=== PATIENT | male | born 1965 | race Caucasian/White ===

== ENCOUNTER → 2016-12-27 | Outpatient (REF) | payer OTHER | LOC: M SFHCLERA 11:29 | PROVIDERS: ATTEND Nurse Practitioner Family | DX: R50.9 Fever, unspecified (principal) ==

== ENCOUNTER → 2017-04-10 | Outpatient (REF) | payer OTHER | LOC: M SFHCPLAZ 15:20 | PROVIDERS: ATTEND Nurse Practitioner Adult Health | DX: Z00.00 Encounter for general adult medical examination without abnormal findings (principal); R53.83 Other fatigue ==

== ENCOUNTER → 2017-11-26 | Outpatient (CLI) | payer OTHER | LOC: M RAD 15:49 | DX: M54.2 Cervicalgia (principal); M47.812 Spondylosis without myelopathy or radiculopathy, cervical region | CPT/HCPCS: 72141 ==

== ENCOUNTER → 2018-10-12 | Outpatient (CLI) | payer OTHER ==
[2018-10-12 17:41] LABS: ALBUMIN 3.9 GM/DL (3.2-5.2); ALBUMIN/GLOBULIN RATIO 1.03 (1.00-1.93); ALKALINE PHOSPHATASE 53 U/L (45-117); ALT/SGPT 25 U/L (12-78); ANION GAP 7 MEQ/L (8-16); AST/SGOT 20 U/L (7-37); BILIRUBIN,TOTAL 0.4 MG/DL (0.2-1.0); BLOOD UREA NITROGEN 19 MG/DL (7-18); CARBON DIOXIDE LEVEL 29 MEQ/L (21-32); CHLORIDE LEVEL 106 MEQ/L (98-107); CHOLESTEROL LEVEL 206 MG/DL (<200); CREATININE FOR GFR 1.27 MG/DL (0.70-1.30); GLOMERULAR FILTRATION RATE > 60.0 (>56); GLUCOSE, FASTING 95 MG/DL (70-100); HDL CHOLESTEROL 40 MG/DL (>40); LDL CHOLESTEROL 125 MG/DL (<100); NON-HDL-C 166 MG/DL; POTASSIUM SERUM 4.2 MEQ/L (3.5-5.1); SODIUM LEVEL 142 MEQ/L (136-145); TOTAL PROTEIN 7.7 GM/DL (6.4-8.2); TRIGLYCERIDES LEVEL 206 MG/DL (<150)
== END ==
LOC: M WUC 11:02
DX: Z00.00 Encounter for general adult medical examination without abnormal findings (principal)
CPT/HCPCS: 80053

== ENCOUNTER → 2019-05-04 | Outpatient (REF) | payer OTHER ==
[2019-05-04 12:28] LABS: ALBUMIN 3.9 GM/DL (3.2-5.2); ALT/SGPT 24 U/L (12-78); BILIRUBIN,TOTAL 0.4 MG/DL (0.2-1.0); BLOOD UREA NITROGEN 20 MG/DL (7-18); CALCIUM LEVEL 9.2 MG/DL (8.5-10.1); CARBON DIOXIDE LEVEL 28 MEQ/L (21-32); CHLORIDE LEVEL 108 MEQ/L (98-107); CHOLESTEROL LEVEL 194 MG/DL (<200); CHOLESTEROL RISK RATIO 4.511 (<5); CREATININE FOR GFR 1.24 MG/DL (0.70-1.30); GLOMERULAR FILTRATION RATE > 60.0 (>56); GLUCOSE, FASTING 98 MG/DL (70-100); HDL CHOLESTEROL 43 MG/DL (>40); LDL CHOLESTEROL 124 MG/DL (<100); NON-HDL-C 151 MG/DL; POTASSIUM SERUM 4.1 MEQ/L (3.5-5.1); SODIUM LEVEL 141 MEQ/L (136-145); TOTAL PROTEIN 7.7 GM/DL (6.4-8.2); TRIGLYCERIDES LEVEL 134 MG/DL (<150)
== END ==
LOC: M SFHCPLAZ 08:47
PROVIDERS: ATTEND Nurse Practitioner Adult Health
DX: Z00.00 Encounter for general adult medical examination without abnormal findings (principal); E78.2 Mixed hyperlipidemia; Z12.5 Encounter for screening for malignant neoplasm of prostate
CPT/HCPCS: 36415; 80053; 80061; 84443; G0103

== ENCOUNTER → 2020-09-22 | Outpatient (CLI) | payer OTHER ==
--- NOTE | 2020-09-22 16:56 | REPVR ---
PROCEDURE INFORMATION: Exam: MR Lumbar Spine Without Contrast. Exam date and time: 09/22/2020 4:34 PM Age: 55 years old Clinical indication: Low back pain; Additional info: Lower back pain TECHNIQUE: Imaging protocol: Multiplanar magnetic resonance images of the lumbar spine without intravenous contrast. COMPARISON: No relevant prior studies available. FINDINGS: Vertebrae: No abnormal vertebral bone marrow signal. Spinal cord: Normal signal. No cord compression. L1-L2: Disc bulge. Bilateral facet and ligamentum flavum hypertrophy. No spinal canal stenosis. Moderate left and severe right neural foraminal narrowing. L2-L3: Disc bulge. Bilateral facet and ligamentum flavum hypertrophy. No spinal canal stenosis. Severe right and mild left neural foraminal narrowing. L3-L4: Disc bulge. Bilateral facet and ligamentum flavum hypertrophy. No spinal canal stenosis. Severe bilateral neural foraminal narrowing. L4-L5: Disc bulge. Bilateral facet and ligamentum flavum hypertrophy. No spinal canal stenosis. Severe bilateral neural foraminal narrowing.. L5-S1: Disc bulge. Bilateral facet hypertrophy. No spinal canal stenosis. Severe left and moderate right neural foraminal narrowing. Soft tissues: Unremarkable. IMPRESSION: No acute abnormality. Multilevel degenerative disc disease with neural foraminal narrowing. Moderate left and severe right neural foraminal narrowing at L1-L2, severe right and mild left at L2-L3, severe bilateral L3-L4, L4-L5 and severe left and moderate right at L5-S1. Electronically signed by: Mahamed Rodriguez On 09/22/2020 16:56:08 PM
== END ==
LOC: M RAD 13:58
PROVIDERS: ATTEND Physician Assistant Medical
DX: M51.26 Other intervertebral disc displacement, lumbar region (principal)

== ENCOUNTER → 2020-12-20 | Outpatient (REF) | payer OTHER ==
[2020-12-20 13:54] LABS: ALBUMIN 3.9 GM/DL (3.2-5.2); BILIRUBIN,TOTAL 0.4 MG/DL (0.2-1.0); CALCIUM LEVEL 9.6 MG/DL (8.5-10.1); CHOLESTEROL RISK RATIO 4.93 (<5); CREATININE FOR GFR 1.38 MG/DL (0.70-1.30); POTASSIUM SERUM 4.6 MEQ/L (3.5-5.1); TOTAL PROTEIN 7.9 GM/DL (6.4-8.2)
== END ==
LOC: M SFHCPLAZ 08:26
PROVIDERS: ATTEND Nurse Practitioner Adult Health
DX: Z00.00 Encounter for general adult medical examination without abnormal findings (principal); E78.2 Mixed hyperlipidemia; Z12.5 Encounter for screening for malignant neoplasm of prostate

== ENCOUNTER → 2021-01-25 | Outpatient (CLI) | payer OTHER ==
[~2021-01-25] MED LIST: ALLO100T; GABA-282; HYDR30SU; NAPR-855
== END ==
LOC: M LABSMTC 11:28
PROVIDERS: ATTEND Anesthesiology
DX: Z01.812 Encounter for preprocedural laboratory examination (principal); Z20.822 Contact with and (suspected) exposure to COVID-19

== ENCOUNTER 2021-01-30 11:57 | Day surgery (SDC) | payer OTHER ==
[~2021-01-30] VITALS: Ht 170.2 cm; Wt 100.7 kg
[~2021-01-30 11:57] MED LIST changes: +LIDOCAINE 2% 100MG/5ML SDV (FOR ANES.) As Ordered ONE; +LR 1,000 ML IV ONE; +MIDAZOLAM INJ 2MG/2ML VIAL (J2250 PER 1MG) As Ordered ONE; +ONDANSETRON 4MG/2ML VIAL As Ordered ONE; +PHENYLephrine 500MCG 5ML (100MCG/ML) SYRINGE As Ordered ONE; +ROCURONIUM BROMIDE 50 MG/5 ML VIAL As Ordered ONE; +SUGAMMADEX SODIUM 500 MG/5 ML VIAL (BRIDION) As Ordered ONE; +dexameTHASONE 4 MG/ML 1ML VIAL (J1100 PER 1MG) As Ordered ONE; +ePHEDrine SULFATE 25 MG/5 ML(5MG/ML) SYRINGE As Ordered ONE; +fentaNYL 100 MCG/2 ML INJECTION (J3010) As Ordered ONE; +propofoL 200 MG/20 ML VIAL As Ordered ONE
[2021-01-30] MEDS ORDERED: BUPIVACAINE HCL 0.25% 10ML VIAL As Ordered ONE (12:31)
[2021-01-30] MEDS ORDERED: BUPIVACAINE LIPOSOME/PF 1.3% 20ML VIAL (13.3MG/ML)(EXPAREL)(C9290 PER1MG) As Ordered ONE (12:31)
[2021-01-30] MEDS ORDERED: METOCLOPRAMIDE INJ 10MG/2ML VIAL (J2765 PER 1) As Ordered ONE (13:50)
[2021-01-30] MEDS ORDERED: propofoL 200 MG/20 ML VIAL As Ordered ONE (14:19)
[2021-01-30] MEDS ORDERED: OXYC1TAB23 PO (15:38)
[2021-01-30 15:45] VITALS: BP 140/78
[2021-01-30] MEDS ORDERED: oxyCODONE 5MG TAB PO PRN (15:50)
[2021-01-30] MEDS ORDERED: HYDROMORPHONE HCL 0.5 MG/ 0.5 ML SYRINGE (J1170 PER 1) IV PRN (15:50)
[2021-01-30] MEDS ORDERED: LR 1,000 ML IV SCH (15:50)
[2021-01-30] MEDS ORDERED: fentaNYL 100 MCG/2 ML INJECTION (J3010) IV PRN (15:50)
[2021-01-30] MEDS ORDERED: ONDANSETRON 4MG/2ML VIAL IV PRN (15:50)
[2021-01-30] MEDS ORDERED: PERCOCET 5MG/325MG TAB PO PRN ×2 (15:50)
[2021-01-30] MEDS ORDERED: PILL CUTTER 1 EACH XX PRN (15:55)
[2021-01-30] MEDS ORDERED: NAPROXEN 250 MG TAB PO SCH (21:00)
[2021-01-30] MEDS ORDERED: DOCUSATE SODIUM 100MG CAPSULE PO SCH (21:00)
--- NOTE | 2021-01-31 09:06 | RO ---
OPERATIVE NOTE DATE OF OPERATION: 01/30/2021 PREOPERATIVE DIAGNOSIS: Hemorrhoids. POSTOPERATIVE DIAGNOSES: 1. Mixed hemorrhoids. 2. Chronic anterior fissure. PROCEDURE PERFORMED: Hemorrhoidectomy of three hemorrhoidal clusters with left lateral internal sphincterotomy. SURGEON: Chris Peña MD COMPUTER SCIENCE PROFESSOR: ANESTHESIA: Spinal. INDICATIONS FOR THE PROCEDURE: The patient is a 55-year-old man who reports a several-month history of rectal pain with bowel movements. He also has noticed frequent bleeding more days than not over the last several months. His history is certainly consistent with hemorrhoids, although the pain is suggestive of the possibility of a fissure. He is now for hemorrhoidectomy. DESCRIPTION OF PROCEDURE: The patient was brought to the operating room where a subarachnoid block was placed. He was rolled into a prone position on the operating table and placed in a jackknife position. Pressure points were padded. The patient's buttocks were spread with tape and the perineum was prepped and draped sterilely. Initial examination was performed with a Escobar anal speculum. He was found to have an approximately 7-8 mm open, chronic fissure at the anterior midline. There were large hemorrhoidal clusters in a left lateral and right lateral position with the one on the left being somewhat more broad-based. There was also an area of primarily internal hemorrhoidal tissue anteriorly. I elected to proceed with the hemorrhoidectomy beginning in the left lateral position. An apical suture of 3-0 Vicryl was placed. The hemorrhoidal tissues were grasped with a Farrah clamp. The incision was begun at the distal extent of the hemorrhoids taking an elliptical excision of the anoderm and mucosa with the underlying vascular tissue. The submucosa contained multiple irregular vessels. These were removed as thoroughly as possible extending out beneath the edges of the mucosa on either side of the excision. Hemostasis was ensured with the cautery. Once the excision was felt to be adequate, I elevated the distal 1.5 cm or so of the internal sphincter through the hemorrhoidectomy site and performed a lateral internal sphincterotomy of this segment. The mucosa was then closed with the previously placed 3-0 Vicryl as a combination running locking, and running suture out onto the anoderm. Several additional [id number] sutures of 3-0 chromic were then placed to ensure hemostasis. Attention was then turned to the right lateral hemorrhoidal cluster. This was excised similarly and similarly extended out onto the anoderm as a mixed hemorrhoidal bundle. This was also closed with 3-0 Vicryl on the internal aspect with some 3-0 chromic beyond the dentate line. The smaller anterior hemorrhoidal bundle was then excised and closed with a 3-0 Vicryl. The wounds were inspected for hemostasis and several additional chromic sutures were placed. There was also noted a split in the skin at the posterior midline which left a small raw area posteriorly. 20 mL of Exparel was mixed with 20 mL of 0.25% Marcaine. This was infiltrated around the perianal area and into the anal canal along the suture line. The final inspection revealed no evidence of any bleeding. The anus was covered with adaptic and fluffed gauze held in place with a dressing of additional gauze and tape. The patient tolerated the procedure well without apparent complication. He was awakened and returned to a supine position and moved to the recovery room in stable condition.
== END 2021-01-30 16:21 | disposition home or self-care (01) ==
LOC: M SDC 11:57
PROVIDERS: ATTEND Surgery
DX: K64.8 Other hemorrhoids (principal); K60.1 Chronic anal fissure; Z79.899 Other long term (current) drug therapy
CPT/HCPCS: 46260; 46270; 88304; C9290; J1100; J2250; J2370; J2405; J2765; J3010

== ENCOUNTER → 2021-02-12 | Outpatient (REF) | payer OTHER ==
[~2021-02-12] MED LIST changes: -LIDOCAINE 2% 100MG/5ML SDV (FOR ANES.) As Ordered ONE; -LR 1,000 ML IV ONE; -MIDAZOLAM INJ 2MG/2ML VIAL (J2250 PER 1MG) As Ordered ONE; -ONDANSETRON 4MG/2ML VIAL As Ordered ONE; +OXYC1TAB23 PO; -PHENYLephrine 500MCG 5ML (100MCG/ML) SYRINGE As Ordered ONE; -ROCURONIUM BROMIDE 50 MG/5 ML VIAL As Ordered ONE; -SUGAMMADEX SODIUM 500 MG/5 ML VIAL (BRIDION) As Ordered ONE; -dexameTHASONE 4 MG/ML 1ML VIAL (J1100 PER 1MG) As Ordered ONE; -ePHEDrine SULFATE 25 MG/5 ML(5MG/ML) SYRINGE As Ordered ONE; -fentaNYL 100 MCG/2 ML INJECTION (J3010) As Ordered ONE; -propofoL 200 MG/20 ML VIAL As Ordered ONE
[2021-02-12 08:40] LABS: APPEARANCE, URINE CLEAR (CLEAR); BACTERIA, URINE AUTO NEGATIVE (NEGATIVE); BILIRUBIN, URINE AUTO NEGATIVE (NEGATIVE); BLOOD, URINE BLOOD NEGATIVE (NEGATIVE); COLOR, URINE YELLOW (YELLOW); GLUCOSE, URINE (UA) AUTO NEGATIVE (NEGATIVE); KETONE, URINE AUTO NEGATIVE (NEGATIVE); LEUKOCYTE ESTERASE, URINE AUTO NEGATIVE (NEGATIVE); MUCUS, URINE SMALL (NEGATIVE); NITRITE, URINE AUTO NEGATIVE (NEGATIVE); PROTEIN, URINE AUTO NEGATIVE (NEGATIVE); RBC, URINE AUTO 4 /HPF (0-3); SPECIFIC GRAVITY URINE AUTO 1.021 (1.002-1.035); SQUAMOUS EPITHELIAL CELL UR AU 0 /HPF (0-6); UROBILINOGEN, URINE AUTO 0.2 mg/dL (0.0-2.0); WBC, URINE AUTO 1 /HPF (0-3)
== END ==
LOC: M LAB REF 08:18
PROVIDERS: ATTEND Urology
DX: N20.0 Calculus of kidney (principal)

== ENCOUNTER → 2022-04-09 | Outpatient (CLI) | payer OTHER ==
[2022-04-09 13:33] LABS: ALBUMIN 3.7 GM/DL (3.2-5.2); ALT/SGPT 23 U/L (12-78); BILIRUBIN,TOTAL 0.4 MG/DL (0.2-1.0); BLOOD UREA NITROGEN 18 MG/DL (7-18); CALCIUM LEVEL 9.5 MG/DL (8.5-10.1); CARBON DIOXIDE LEVEL 31 MEQ/L (21-32); CHLORIDE LEVEL 109 MEQ/L (98-107); CHOLESTEROL LEVEL 194 MG/DL (<200); CHOLESTEROL RISK RATIO 4.041 (<5); CREATININE FOR GFR 1.24 MG/DL (0.70-1.30); GLOMERULAR FILTRATION RATE > 60.0 (>56); GLUCOSE, FASTING 106 MG/DL (70-100); HDL CHOLESTEROL 48 MG/DL (>40); LDL CHOLESTEROL 119 MG/DL (<100); NON-HDL-C 146 MG/DL; POTASSIUM SERUM 4.6 MEQ/L (3.5-5.1); SODIUM LEVEL 143 MEQ/L (136-145); TOTAL PROTEIN 7.3 GM/DL (6.4-8.2); TRIGLYCERIDES LEVEL 135 MG/DL (<150)
[2022-04-09 14:10] LABS: HEMOGLOBIN A1c 5.6 %
== END ==
LOC: M PLALAB 10:58
PROVIDERS: ATTEND Nurse Practitioner Adult Health
DX: Z00.00 Encounter for general adult medical examination without abnormal findings (principal)

== ENCOUNTER 2023-01-05 14:14 | Observation (INO) | payer OTHER ==
[~2023-01-05] VITALS: Ht 172.7 cm; Wt 97.7 kg
[2023-01-05] VITALS (8 sets, daily range): BP systolic 154–189; BP diastolic 86–98; O2SAT 92–94
[~2023-01-05 14:14] MED LIST changes: -ALLO100T; +ALLO100T PO; -GABA-282; +GABA-282 PO
[2023-01-05] MEDS ORDERED: ONDANSETRON 4MG 2ML VIAL IV ONE ×2 (14:55→16:55)
[2023-01-05] MEDS ORDERED: HYDROmorphone 2 MG TAB PO ONE (14:55)
[2023-01-05 15:23] LABS: BASO % 0.2 % (0.0-1.0); EOS % 0.3 % (0.0-3.0); HEMATOCRIT 42.2 % (42.0-52.0); HEMOGLOBIN 14.1 g/dl (13.5-17.5); LYMPH # 2.4 10^3/uL (1.5-5.0); LYMPH % 16.2 % (24.0-44.0); MEAN CORPUSCULAR HEMOGLOBIN 30.1 pg (27.0-33.0); MEAN CORPUSCULAR HGB CONC 33.4 g/dl (32.0-36.5); MONO % 6.5 % (2.0-8.0); NEUTROPHILS # 11.2 10^3/uL (1.5-8.5); NEUTROPHILS % 76.3 % (36.0-66.0); PLATELET COUNT, AUTOMATED 278 10^3/uL (150-450); RED BLOOD COUNT 4.69 10^6/uL (4.30-6.10); WHITE BLOOD COUNT 14.7 10^3/uL (4.0-10.0)
[2023-01-05 15:48] LABS: CALCIUM LEVEL 9.7 MG/DL (8.5-10.1); CREATININE FOR GFR 1.47 MG/DL (0.70-1.30); GLOMERULAR FILTRATION RATE 52.6 (>56); POTASSIUM SERUM 5.1 MMOL/L (3.5-5.1)
[2023-01-05] MEDS ORDERED: HYDROMORPHONE HCL 0.5 MG/ 0.5 ML SYRINGE IV ONE (16:50)
[2023-01-05] MEDS ORDERED: HYDROMORPHONE HCL 0.5 MG/ 0.5 ML SYRINGE IV PRN ×2 (16:55→19:35)
[2023-01-05] MEDS ORDERED: HYDROmorphone HCL 2MG/ML 1ML VIAL IV PRN (16:55)
[2023-01-05] MEDS ORDERED: LR 1,000 ML IV SCH ×2 (17:05→19:35)
[2023-01-05] MEDS ORDERED: LR 1,000 ML IV ONE (17:05)
[2023-01-05 17:52] LABS: INR 0.92; PROTHROMBIN TIME 12.6 SECONDS (12.5-14.5)
[2023-01-05] MEDS ORDERED: LevoFLOXacin IV 750 MG in IV 1 EA IV SCH (18:00)
[2023-01-05] MEDS: ACETAMINOPHEN 500 MG TAB PO SCH ×2 (18:00→23:56)
[2023-01-05] MEDS ORDERED: ZINC50TA4 PO (18:05)
[2023-01-05] MEDS ORDERED: OMEP-173 PO (18:05)
[2023-01-05] MEDS ORDERED: PERCOCET PO (18:05)
[2023-01-05] MEDS ORDERED: SAW1CAPS2 PO (18:05)
[2023-01-05] MEDS ORDERED: VITMTA PO (18:05)
[2023-01-05] MEDS ORDERED: FLAX1CAP5 PO (18:05)
[2023-01-05] MEDS ORDERED: HOME MED LIST COMPLETE! XX SCH (18:05)
[2023-01-05] MEDS ORDERED: MELO15TA28 PO (18:05)
[2023-01-05] MEDS ORDERED: B-12100010 PO (18:05)
[2023-01-05] MEDS ORDERED: LIDOCAINE 2% 100MG/5ML SDV (FOR ANES.) As Ordered ONE (18:44)
[2023-01-05] MEDS ORDERED: propofoL 200 MG/20 ML VIAL As Ordered ONE (18:44)
[2023-01-05] MEDS ORDERED: ONDANSETRON 4MG 2ML VIAL As Ordered ONE (18:44)
[2023-01-05] MEDS ORDERED: MIDAZOLAM INJ 2MG/2ML VIAL As Ordered ONE (18:44)
[2023-01-05] MEDS ORDERED: fentaNYL 100 MCG/2 ML INJECTION As Ordered ONE (18:44)
[2023-01-05] MEDS ORDERED: ISOVUE-300 61% 100ML VIAL As Ordered ONE (19:17)
[2023-01-05] MEDS ORDERED: ceFAZolin 2 GM/D5W 50 ML IV BAG As Ordered ONE (19:28)
[2023-01-05] MEDS ORDERED: oxyCODONE 5MG TAB PO PRN (19:35)
[2023-01-05] MEDS ORDERED: fentaNYL 100 MCG/2 ML INJECTION IV PRN (19:35)
[2023-01-05] MEDS ORDERED: ONDANSETRON 4MG 2ML VIAL IV PRN (19:35)
[2023-01-05] MEDS: DICLOFENAC EPOLAMINE 1.3% PATCH TOP SCH (21:00)
[2023-01-05] MEDS ORDERED: GABAPENTIN 300 MG CAP PO ONE (21:00)
[2023-01-05] MEDS ORDERED: PROCHLORPERAZINE 10MG 2ML VIAL IV PRN (22:00)
[2023-01-06] VITALS (7 sets, daily range): BP systolic 136; BP diastolic 81; O2SAT 93–95
[2023-01-06 05:25] LABS: HEMATOCRIT 42.4 % (42.0-52.0); MEAN CORPUSCULAR HEMOGLOBIN 29.8 pg (27.0-33.0); MEAN CORPUSCULAR VOLUME 90.2 fl (80.0-96.0); PLATELET COUNT, AUTOMATED 260 10^3/uL (150-450); WHITE BLOOD COUNT 12.5 10^3/uL (4.0-10.0)
[2023-01-06] MEDS: ACETAMINOPHEN 500 MG TAB PO SCH (05:32)
[2023-01-06 05:56] LABS: CREATININE FOR GFR 1.44 MG/DL (0.70-1.30); GLOMERULAR FILTRATION RATE 53.8 (>56); POTASSIUM SERUM 5.3 MMOL/L (3.5-5.1)
[2023-01-06] MEDS ORDERED: LIDO5TD TD (08:47)
[2023-01-06] MEDS ORDERED: DICL1PAT6 TOP (08:47)
[2023-01-06] MEDS ORDERED: LEVO1TAB40 PO (08:47)
[2023-01-06] MEDS ORDERED: ACET-683 PO (08:47)
[2023-01-06] MEDS ORDERED: PATIROMER SORBITEX CALCIUM 8.4 GM POWDER PACKET (VELTASSA) PO ONE (09:00)
[2023-01-06] MEDS: DICLOFENAC EPOLAMINE 1.3% PATCH TOP SCH (09:00)
[2023-01-06] MEDS ORDERED: LIDOCAINE 5% (LIDODERM) PATCH TD SCH (09:00)
== END 2023-01-06 12:02 | disposition home or self-care (01) ==
LOC: M ED 14:14 → M ED INP 16:54 → INTOOBSV 16:54 → ENRESERV 17:55 → M PCU 18:30
PROVIDERS: ADMIT Student in an Organized Health Care Education/Training Program; ATTEND Student in an Organized Health Care Education/Training Program
DX: N13.2 Hydronephrosis with renal and ureteral calculous obstruction (principal); N17.9 Acute kidney failure, unspecified; D72.829 Elevated white blood cell count, unspecified; E87.29 Other acidosis; M54.50 Low back pain, unspecified; Z86.16 Personal history of COVID-19; Z79.899 Other long term (current) drug therapy
CPT/HCPCS: 36415; 52332; 74176; 74420; 80048; 81001; 83605; 84145; 85025; 85027; 85610; 87040; 87635; 96361; 96374; 96375; 96376; 99284; C1769; C2617; J0690; J0780; J1100; J1170; J2250; J2405; J3010

== ENCOUNTER → 2023-01-09 | Outpatient (CLI) | payer OTHER ==
[~2023-01-09] MED LIST changes: +ACET-683 PO; +B-12100010 PO; +DICL1PAT6 TOP; +FLAX1CAP5 PO; +LEVO1TAB40 PO; +LIDO5TD TD; +MELO15TA28 PO; +OMEP-173 PO; +PERCOCET PO; +SAW1CAPS2 PO; +VITMTA PO; +ZINC50TA4 PO
[2023-01-09 16:17] LABS: HEMATOCRIT 45.3 % (42.0-52.0); HEMOGLOBIN 14.5 g/dl (13.5-17.5); MEAN CORPUSCULAR HEMOGLOBIN 29.8 pg (27.0-33.0); MEAN CORPUSCULAR VOLUME 93.2 fl (80.0-96.0); PLATELET COUNT, AUTOMATED 317 10^3/uL (150-450); RED BLOOD COUNT 4.86 10^6/uL (4.30-6.10); WHITE BLOOD COUNT 9.5 10^3/uL (4.0-10.0)
[2023-01-09 16:43] LABS: ALBUMIN 3.6 G/DL (3.2-5.2); BILIRUBIN,TOTAL 0.5 MG/DL (0.3-1.2); CALCIUM LEVEL 9.4 MG/DL (8.5-10.1); CREATININE FOR GFR 1.4 MG/DL (0.70-1.30); GLOMERULAR FILTRATION RATE 55.6 (>56); POTASSIUM SERUM 4.5 MMOL/L (3.5-5.1); TOTAL PROTEIN 7.2 G/DL (5.7-8.2)
[2023-01-09 16:44] LABS: THYROID STIMULATING HORMONE 0.831 uIU/ML (0.55-4.78)
[2023-01-09 16:46] LABS: HEMOGLOBIN A1c 5.9 % (4.0-6.0)
== END ==
LOC: M PLALAB 12:42
PROVIDERS: ATTEND Nurse Practitioner Adult Health
DX: Z00.00 Encounter for general adult medical examination without abnormal findings (principal); Z12.5 Encounter for screening for malignant neoplasm of prostate; E78.2 Mixed hyperlipidemia; Z68.33 Body mass index [BMI] 33.0-33.9, adult
CPT/HCPCS: 36415; 80053; 83036; 84443; 85027; G0103

== ENCOUNTER → 2023-01-15 | Outpatient (CLI) | payer OTHER ==
[~2023-01-15] MED LIST changes: +OXYB5TAB10 PO
== END ==
LOC: M LABSMTC 11:49
PROVIDERS: ATTEND Anesthesiology
DX: Z01.812 Encounter for preprocedural laboratory examination (principal); Z20.822 Contact with and (suspected) exposure to COVID-19

== ENCOUNTER → 2023-01-16 | Outpatient (CLI) | payer OTHER ==
[~2023-01-16] MED LIST changes: +OXYB10TA23 PO
[2023-01-16 12:52] LABS: AMORPHOUS SEDIMENT SMALL (NEGATIVE); APPEARANCE, URINE HAZY (CLEAR); BACTERIA, URINE AUTO NEGATIVE (NEGATIVE); BILIRUBIN, URINE AUTO NEGATIVE (NEGATIVE); BLOOD, URINE BLOOD 3+ (NEGATIVE); COLOR, URINE YELLOW (YELLOW); GLUCOSE, URINE (UA) AUTO NEGATIVE (NEGATIVE); KETONE, URINE AUTO NEGATIVE (NEGATIVE); LEUKOCYTE ESTERASE, URINE AUTO 3+ (NEGATIVE); MUCUS, URINE SMALL (NEGATIVE); NITRITE, URINE AUTO NEGATIVE (NEGATIVE); PROTEIN, URINE AUTO 1+ mg/dL (NEGATIVE); RBC, URINE AUTO 76 /HPF (0-3); SPECIFIC GRAVITY URINE AUTO 1.024 (1.002-1.035); SQUAMOUS EPITHELIAL CELL UR AU 1 /HPF (0-6); UROBILINOGEN, URINE AUTO 0.2 mg/dL (0.0-2.0); WBC, URINE AUTO 30 /HPF (0-3)
== END ==
LOC: M RAD 11:07
PROVIDERS: ATTEND Physician Assistant
DX: Z48.816 Encounter for surgical aftercare following surgery on the genitourinary system (principal)

== ENCOUNTER 2023-01-17 11:57 | Day surgery (SDC) | payer OTHER ==
[~2023-01-17] VITALS: Ht 172.7 cm; Wt 94.8 kg
[~2023-01-17 11:57] MED LIST changes: -OXYB10TA23 PO; +ceFAZolin SOD 2 GM in IV 1 EA IV ONE
[2023-01-17] MEDS ORDERED: LR 1,000 ML IV SCH ×2 (12:25→15:40)
[2023-01-17] MEDS ORDERED: ISOVUE-300 61% 100ML VIAL As Ordered ONE (14:09)
[2023-01-17] MEDS ORDERED: LIDOCAINE 2% 100MG/5ML SDV (FOR ANES.) As Ordered ONE (14:11)
[2023-01-17] MEDS ORDERED: ONDANSETRON 4MG 2ML VIAL As Ordered ONE (14:11)
[2023-01-17] MEDS ORDERED: propofoL 200 MG/20 ML VIAL As Ordered ONE (14:11)
[2023-01-17] MEDS ORDERED: KETOROLAC 60MG 2ML VIAL As Ordered ONE (14:11)
[2023-01-17] MEDS ORDERED: fentaNYL 100 MCG/2 ML INJECTION As Ordered ONE (14:12)
[2023-01-17] MEDS ORDERED: MIDAZOLAM INJ 2MG/2ML VIAL As Ordered ONE (14:12)
[2023-01-17] MEDS ORDERED: ONDANSETRON 4MG 2ML VIAL IV PRN (15:40)
[2023-01-17] MEDS ORDERED: oxyBUTYnin 5 MG TAB PO STA (16:10)
[2023-01-17] MEDS: oxyCODONE 5MG TAB PO PRN ×2 (16:27→17:06)
[2023-01-17] MEDS: HYDROMORPHONE HCL 0.5 MG/ 0.5 ML SYRINGE IV PRN ×4 (16:29→18:18)
[2023-01-17] MEDS: fentaNYL 100 MCG/2 ML INJECTION IV PRN ×4 (16:42→17:07)
[2023-01-17] MEDS ORDERED: oxyBUTYnin 5 MG TAB PO PRN (17:00)
[2023-01-17] MEDS ORDERED: PERCOCET 5MG/325MG TAB PO PRN (17:00)
[2023-01-17] MEDS ORDERED: oxyBUTYnin 5 MG TAB PO ONE (18:40)
[2023-01-17] MEDS ORDERED: OXYB10TA23 PO (19:48)
[2023-01-17 20:16] VITALS: BP 141/78
[2023-01-21 20:08] LABS: Ca Ox Monohydrate 100 % (.); Size 3x5 mm (.)
== END 2023-01-17 20:30 | disposition home or self-care (01) ==
LOC: M SDC 11:57
PROVIDERS: ATTEND Urology
DX: N20.0 Calculus of kidney (principal); N13.2 Hydronephrosis with renal and ureteral calculous obstruction; G44.229 Chronic tension-type headache, not intractable; E78.2 Mixed hyperlipidemia; K21.00 Gastro-esophageal reflux disease with esophagitis, without bleeding; Z79.899 Other long term (current) drug therapy; M51.36 Other intervertebral disc degeneration, lumbar region
CPT/HCPCS: 52356; 76000; 82365; C1769; C1894; C2617; J0690; J1100; J1170; J1885; J2250; J2405; J3010; Q9967

== ENCOUNTER 2023-03-20 15:26 | Emergency (ER) | payer OTHER ==
[~2023-03-20] VITALS: Ht 172.7 cm; Wt 98.8 kg
[~2023-03-20 15:26] MED LIST changes: +OXYB10TA23 PO; -ceFAZolin SOD 2 GM in IV 1 EA IV ONE
[2023-03-20] MEDS ORDERED: MECL-86 (15:36)
[2023-03-20] MEDS ORDERED: FLUT50SP17 (15:36)
[2023-03-20 17:13] LABS: HEMATOCRIT 43.4 % (42.0-52.0); HEMOGLOBIN 14.4 g/dl (13.5-17.5); MEAN CORPUSCULAR HGB CONC 33.2 g/dl (32.0-36.5); MEAN CORPUSCULAR VOLUME 90.4 fl (80.0-96.0); PLATELET COUNT, AUTOMATED 333 10^3/uL (150-450); WHITE BLOOD COUNT 8.9 10^3/uL (4.0-10.0)
[2023-03-20 17:32] LABS: CALCIUM LEVEL 8.8 MG/DL (8.5-10.1); CREATININE FOR GFR 1.48 MG/DL (0.70-1.30)
[2023-03-20] MEDS ORDERED: NS 1,000 ML IV ONE (20:10)
[2023-03-20 22:20] VITALS: BP 170/80
[2023-03-20 22:35] VITALS: O2SAT 99
[2023-03-20] MEDS ORDERED: CHLO125TA PO (22:54)
[2023-03-20] MEDS ORDERED: REGL10TA6 PO (22:54)
[2023-03-20] MEDS ORDERED: CHLORTHALIDONE 12.5MG PER 1/2 TABLET PO ONE (22:55)
[2023-03-20] MEDS ORDERED: MECLIZINE 25 MG TABLET PO ONE (22:55)
[2023-03-20] MEDS ORDERED: METOCLOPRAMIDE 10MG TAB PO ONE (22:55)
== END 2023-03-20 22:58 | disposition home or self-care (01) ==
LOC: M ED 15:26
DX: R42 Dizziness and giddiness (principal); I10 Essential (primary) hypertension; Z87.442 Personal history of urinary calculi; Z79.899 Other long term (current) drug therapy

== ENCOUNTER → 2023-11-21 | Outpatient (CLI) | payer OTHER ==
[~2023-11-21] MED LIST changes: +CHLO125TA PO; +FLUTISP; +MECL-86; -OXYB5TAB10 PO; +OXYB5TAB11 PO; +REGL10TA6 PO
[2023-11-21 18:56] LABS: ALBUMIN 3.9 G/DL (3.2-5.2); BILIRUBIN,TOTAL 0.4 MG/DL (0.3-1.2); CALCIUM LEVEL 9.5 MG/DL (8.5-10.1); CHOLESTEROL RISK RATIO 5.04 (<5); CREATININE FOR GFR 2.02 MG/DL (0.70-1.30); GLOMERULAR FILTRATION RATE 36.3 (>56); HDL CHOLESTEROL 45.2 MG/DL (>40); LDL CHOLESTEROL 115.8 MG/DL (<100); NON-HDL-C 182.8 MG/DL; POTASSIUM SERUM 4.4 MMOL/L (3.5-5.1); TOTAL PROTEIN 7.7 G/DL (5.7-8.2)
== END ==
LOC: M PLALAB 15:01
PROVIDERS: ATTEND Nurse Practitioner Adult Health
DX: E78.2 Mixed hyperlipidemia (principal); Z12.11 Encounter for screening for malignant neoplasm of colon

== ENCOUNTER → 2023-11-21 | Outpatient (CLI) | payer OTHER ==
[2023-11-21 18:42] LABS: HEMATOCRIT 46.6 % (42.0-52.0); HEMOGLOBIN 15.2 g/dl (13.5-17.5); MEAN CORPUSCULAR HEMOGLOBIN 29.8 pg (27.0-33.0); MEAN CORPUSCULAR HGB CONC 32.6 g/dl (32.0-36.5); MEAN CORPUSCULAR VOLUME 91.4 fl (80.0-96.0); PLATELET COUNT, AUTOMATED 276 10^3/uL (150-450)
[2023-11-21 18:44] LABS: POTASSIUM SERUM 4.4 MMOL/L (3.5-5.1)
== END ==
LOC: M PLALAB 15:00
PROVIDERS: ATTEND Orthopaedic Surgery
DX: Z01.818 Encounter for other preprocedural examination (principal)

== ENCOUNTER → 2023-11-21 | Outpatient (CLI) | payer OTHER | LOC: M PLAIMG 15:03 | PROVIDERS: ATTEND Urology | DX: N20.0 Calculus of kidney (principal) ==

== ENCOUNTER → 2025-06-08 | Outpatient (CLI) | payer OTHER ==
[~2025-06-08] MED LIST changes: +GABA-1172 PO; -GABA-282 PO; -OXYB5TAB11 PO; +OXYB5TAB14 PO
[2025-06-08 14:07] LABS: ALT/SGPT 39.0 U/L (7.0-40); AST/SGOT 35.0 U/L (<34); CALCIUM LEVEL 9.7 MG/DL (8.3-10.6); CARBON DIOXIDE LEVEL 31.0 MMOL/L (20-31); CHLORIDE LEVEL 100.0 MMOL/L (98-107); CHOLESTEROL LEVEL 187.0 MG/DL (<200); CHOLESTEROL RISK RATIO 4.41 (<5); CREATININE FOR GFR 1.93 MG/DL (0.70-1.30); GLOMERULAR FILTRATION RATE 39.1 (>49); LDL CHOLESTEROL 125.0 MG/DL (<100); NON-HDL-C 144.6 MG/DL; POTASSIUM SERUM 4.3 MMOL/L (3.5-5.1); SODIUM LEVEL 141.0 MMOL/L (136-145); TRIGLYCERIDES LEVEL 98.0 MG/DL (<150)
== END ==
LOC: M PLALAB 11:44
PROVIDERS: ATTEND Nurse Practitioner Adult Health
DX: Z00.00 Encounter for general adult medical examination without abnormal findings (principal); E74.39 Other disorders of intestinal carbohydrate absorption; E78.2 Mixed hyperlipidemia; I10 Essential (primary) hypertension

== ENCOUNTER → 2025-07-21 | Outpatient (REF) | payer OTHER ==
[~2025-07-21] MED LIST changes: +ZINC50TA37 PO; -ZINC50TA4 PO
== END ==
LOC: M SFHCDERM 08:26
PROVIDERS: ATTEND Nurse Practitioner Family
DX: D48.9 Neoplasm of uncertain behavior, unspecified (principal)

== ENCOUNTER → 2025-10-25 | Outpatient (REF) | payer OTHER | LOC: M LAB REF 17:39 | PROVIDERS: ATTEND Plastic Surgery Surgery of the Hand | DX: D23.39 Other benign neoplasm of skin of other parts of face (principal) ==